=== PATIENT | male | born 1955 | race Caucasian/White ===

== ENCOUNTER 2024-06-27 10:42 | Outpatient (AMB) | payer BC, SELFPAY ==
--- NOTE | 2024-06-27 10:52 | MHC.PC.OV ---
Vital Signs 06/27/24 11:01 Height 5 ft 10.08 in Weight 285 lb 8 oz BMI 40.9 BP 138/74 Blood Pressure Location Rt brachial Position Sitting Pulse 73 Pulse Source Pulse Oximeter Pulse Oximetry (%) 94 Oxygen Delivery Method Room Air Intake Visit Reasons: est care/pace maker Intake Note: New patient visit [employer] Required: No Allergies No Known Allergies Allergy (Verified 06/27/24 10:55) Medication List - Last Reconciled 06/27/24 by Casandra Love PA-C amoxicillin PO tadalafil mg PO tadalafil 5 mg PO DAILY Tobacco use date assessed: 06/27/24 Fall risk assessment: No Falls in past year Last assessed Fall Risk: 06/27/24 Dental Screening Dental Screen Date: 06/27/24 Did you have a dental visit in the last 12 months?: Yes Did you have a dental problem in the last 6 months where you did not have access to dental care?: No Was dental information given to patient?: Patient has dentist HPI est care/pace maker HPI Details Pt is a 69 y/omale who presents today to establish care. He is transferring from [place]. He has a hx of hip replacements, erectile dysfunction, and a pacemaker. General: work has had some increase stressors and he does emotional overeat. He states that he knows how to lose weight and is trying a nutritional plan. He states at one time he lost 120 lbs. He is doing a low carb diet and following the whole 30. He is trying to also bike more. Musculoskeletal: followed with [facility] for bilateral hip replacements (one in 2012 and one in 2017). CV: follows with Dr. Astorga for his pacemaker. He had this put in in 2014. He states he needs a new referral to back to him because it is due to be replaced. He states that he had this because he had some weird rhythm of his heart while he was doing a stress test. He tells me he can not remember what it was or what this is called. He says that this is about 10 years ago and he felt fine while he was on the treadmill but remembers them stopping the test because of his rhythm and then he met to go get a pacemaker. He states that they are upset with him a little bit of the Cardiology Department because he has missed a couple follow up. He does not have his records here yet today. He is going to sign a release. He states it was hard to contact [facility] for records. He has never had hypertension but has had elevated blood pressure readings on and off which have been consistent with his diet. States he has never had issues with his cholesterol. No chest pain or shortness on breath. Uro: has seen urology for the ED. He saw an eye doc this year and states everything looked normal . Colonoscopy: overdue- states that he had a normal colonoscopy before and would be open to a cologuard. does not want to do another colonoscopy if possible. no fam hx or personal hx. 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 [facility] Medical History (Updated 06/27/24 @ 11:59 by Casandra Love PA-C) Pacemaker Surgical History (Updated 06/27/24 @ 10:59 by Sofía Ahn CMA) H/O bilateral hip replacements Family History (Updated 06/27/24 @ 11:01 by Sofía Ahn CMA) Father Pancreatic cancer Mother Type 2 diabetes mellitus Social History (Updated 06/27/24 @ 11:01 by Sofía Ahn CMA) Housing: House Alcohol intake: former Comment: quit 14 years ago Patient Tobacco Use Status: Former Tobacco user (quit 30 years ago) Cigarette Packs Per Day: 1 Years Smoked: 15 e-Cigarette/Vaping Use: Never Used service: No Current occupational status: employed Current occupation: Sales Current occupational exposures/hazards: No Cognitive needs: No Hearing needs: No Vision needs: No Questionnaire PHQ-9 Over the last 2 weeks, how often have you been bothered by any of the following problems? 1. Little interest or pleasure in doing things: not at all 2. Feeling down, depressed, or hopeless: not at all 3. Trouble falling or staying asleep, or sleeping too much: not at all 4. Feeling tired or having little energy: not at all 5. Poor appetite or overeating: not at all 6. Feeling bad about yourself - or that you are a failure or have let yourself or your family down: not at all 7. Trouble concentrating on things, such as reading the newspaper or watching television: not at all 8. Moving or speaking so slowly that other people could have noticed. Or the opposite - being so fidgety or restless that you have been moving around a lot more than usual: not at all 9. Thoughts that you would be better off or of hurting yourself in some way: not at all Total score: 0 Depression Screening Interpretation: Negative Depression Screening Done: Yes 24151 - PHQ-9 Billing: Yes Source: Developed by Drs. Shade Angel, Rosanna Pandya, Chaka Maciel and colleagues, with an educational cl from [employer]. Thrive Questionnaire I am a: Patient What is your living situation today?: I have a steady place to live Within the past 12 months, did the food you bought not last and you didn't have the money to get more?: Never true Within the past 12 months, did you worry whether your food would run out before you got money to buy more?: Never true Do you have trouble paying for medicines?: No Do you have trouble getting transportation to medical appointments?: No Do you have trouble paying your heating and electricity bill?: No Do you have trouble taking care of your child, family member or friend?: No Do you have trouble with day-to-day activities such as bathing, preparing meals, shopping, managing finances, etc.?: No Are you currently unemployed and looking for a job?: No Are you interested in more education?: Yes Please select the resources that you would like help with: None Currently or been in a relationship where the following occur: No concerns reported THRIVE Score: 0 AUDIT C Alcohol Use Questionnaire (AUDIT-C) 1. How often do you have a drink containing alcohol?: Never Total Score: 0 Score Reviewed/Action Taken: Yes MARTHA-7 AMB Questionnaire MARTHA-7 Feeling nervous, anxious, or on edge: 0 = Not at all Not being able to stop or control worryin = Not at all Worrying too much about different things: 0 = Not at all Trouble relaxin = Not at all Being so restless that it is hard to sit still: 0 = Not at all Becoming easily annoyed or irritable: 0 = Not at all Feeling afraid as if something awful might happen: 0 = Not at all Total MARTHA-7 score (0-4 normal; 5-9 mild; 10-14 moderate; 15-21 severe): 0 Source: Developed by Drs. Shade Angel, Rosanna Pandya, Chaka Maciel and colleagues, with an educational cl from [employer]. MARTHA-7 Assessment Billing MARTHA-7 Assessment Tool: MARTHA-7 Assessment 47471 Physical exam (Primary Care) Vital Signs: Last Vital Signs Pulse 73 06/27/24 11:01 BP 138/74 06/27/24 11:01 Pulse Ox 94 06/27/24 11:01 Oxygen Delivery Method Room Air 06/27/24 11:01 BMI result Body Mass Index 40.9 Tobacco/Smoking Status: Tobacco use Status Tobacco use date assessed 06/27/24 06/27/24 11:05 Patient Tobacco Use Status Former Tobacco user (quit 30 06/27/24 11:05 years ago) e-Cigarette/Vaping Use Never Used 06/27/24 11:05 PHQ-9: PHQ-9 Score PHQ-9: Total score 0 06/27/24 11:05 Depression Screening Interpretation: Negative Currently or been in a relationship where the following occur: No concerns reported Const Orientation/consciousness: patient oriented x3 HENMT Ears: hearing grossly normal bilaterally Neck Thyroid: Thyroid normal Lymphatic: no lymphadenopathy noted Resp Auscultation: clear to auscultation bilaterally Cardio Rate: regular rate Rhythm: regular rhythm Heart sounds: S1 normal heart sound present and S2 normal heart sound present GI Inspection: Yes normal to inspection Palpation (GI): Soft to palpation and Other GI palpation findings present (nontender, no cva tenderness) Auscultation: normoactive bowel sounds Rectal Exam - Male: Yes deferred Skin General skin exam: no rashes or lesions noted Neuro General: patient oriented x3, gait normal and no focal motor deficits Coding Level of Care Code New Pt Level 4 (80800) Complex EM visit Add On G2211 Diagnoses Pacemaker Z95.0 Hx of cardiac arrhythmia Z86.79 Former smoker Z87.891 Prehypertension R03.0 Additional Codes PHQ-9 - 50642 - PHQ-9 Billing: Yes ([id number]) MARTHA-7 Assessment Billing - MARTHA-7 Assessment Tool: MARTHA-7 Assessment 84951 ([id number]) Assessment & Plan Assessment & Plan (1) Pacemaker: Code(s): Z95.0 - Presence of cardiac pacemaker Category: Medical Plan: Referral to Dr. Astorga. (2) Hx of cardiac arrhythmia: Code(s): Z86.79 - Personal history of other diseases of the circulatory system Category: Medical Plan: Advised patient to get records. (3) Former smoker: Code(s): Z87.891 - Personal history of nicotine dependence Category: Social Hx Plan: AAA screen ordered. He did smoke but quit more than 30 years ago. He smoked on and off as a teenager for about 20 years. (4) Prehypertension: Code(s): R03.0 - Elevated blood-pressure reading, without diagnosis of hypertension Category: Medical Plan: We did discuss that his blood pressure is borderline. We will monitor this. He is currently working on diet and weight loss. He is trying the whole 30. He does not believe he needs any help in terms of weight loss medication. We will do a follow up. Plan Labs ordered today including CBC, CMP, lipid, TSH, PSA. Discussed the pros and cons ordering a PSA. Ultrasound of the abdominal aorta ordered. Cologuard ordered. Referral to Cardiology. Orders: Orders Complete Blood Count Auto Diff Today Z13.220 - Encounter for screening for lipoid disorders, Z86.79 - Personal history of other diseases of the circulatory system, Z95.0 - Presence of cardiac pacemaker US abdominal aortic aneurysm Today R03.0 - Elevated blood-pressure reading, without diagnosis of hypertension, Z87.891 - Personal history of nicotine dependence Comprehensive Tillar. Panel Fast Today Z13.220 - Encounter for screening for lipoid disorders, Z86.79 - Personal history of other diseases of the circulatory system, Z95.0 - Presence of cardiac pacemaker Lipid Panel Today Z13.220 - Encounter for screening for lipoid disorders, Z86.79 - Personal history of other diseases of the circulatory system, Z95.0 - Presence of cardiac pacemaker TSH reflex Free T4 Today Z13.220 - Encounter for screening for lipoid disorders, Z86.79 - Personal history of other diseases of the circulatory system, Z95.0 - Presence of cardiac pacemaker Prostate Specific Antigen Scr Today Z01.89 - Encounter for other specified special examinations, Z13.220 - Encounter for screening for lipoid disorders, Z86.79 - Personal history of other diseases of the circulatory system, Z95.0 - Presence of cardiac pacemaker Referrals Cologuard Test Z12.11 - Encounter for screening for malignant neoplasm of colon Cardiology Referral Z86.79 - Personal history of other diseases of the circulatory system, Z95.0 - Presence of cardiac pacemaker
[2024-06-27 11:01] VITALS: BP 138/74; PULSE 73; O2SAT 94; BMI 40.9
== END 2024-06-27 12:14 | disposition home or self-care (01) ==
PROVIDERS: PCP Physician Assistant; Visit Provider Physician Assistant
DX: R03.0 Elevated blood-pressure reading, without diagnosis of hypertension (principal); Z95.0 Presence of cardiac pacemaker; Z86.79 Personal history of other diseases of the circulatory system; Z87.891 Personal history of nicotine dependence

== ENCOUNTER → 2024-06-27 10:42 | Outpatient (BNVA) | payer BC, SELFPAY | PROVIDERS: PCP Physician Assistant; Visit Provider Physician Assistant | DX: Z86.79 Personal history of other diseases of the circulatory system (principal); Z95.0 Presence of cardiac pacemaker; R03.0 Elevated blood-pressure reading, without diagnosis of hypertension; Z87.891 Personal history of nicotine dependence | CPT/HCPCS: 96127 ==

== ENCOUNTER 2024-07-26 08:37 | Outpatient (REF) | payer BC, SELFPAY ==
--- NOTE | ~2024-07-26 | US_ITS ---
EXAMINATION: US ABDOMEN ANEURYSM SCREENING HISTORY: Z87.891 - Personal history of nicotine dependence TECHNIQUE: Ultrasound of the abdominal aorta was performed with color flow and spectral imaging. COMPARISON: There are no prior studies for comparison. FINDINGS: Real-time grayscale ultrasound imaging was performed and reviewed. Mild plaque is seen. Proximal abdominal aorta measures 2.1 x 2.4 cm Mid abdominal aorta measures 2.0 x 2.1 cm Distal abdominal aorta measures 2.1 x 2.0cm. Left proximal iliac artery measures 1.5 x 1.3 cm. Right proximal iliac artery measures 1.1 x 1.0cm. US/US abdominal aortic aneurysm IMPRESSION: No evidence of an abdominal aortic aneurysm. Electronically signed by: Shade Khan MD 07/26/2024 09:19 AM [facility] [place]
--- OUTSIDE RECORDS SUMMARY | 2024-07-26 08:55 | XMS_ITS | Encounter Summary ---
Author Organization [facility] Address [address] [place] [address] Care Team Providers Care Area Development Manager Name Role Phone Patricia Pritchett MD Primary Care Provider [phone] Encounter Details Date Type Department Care Team (Late st Contact Info) Description 07/02/2024 5:25 PM EST Ancillary Procedure [facility] [address] [facility] [address] [place] [address] Social History Tobacco Use Types Packs/Day Years Used Date Smoking Tobacco: Former Smokeless Tobacco: Never Alcohol Use Standard Drinks/Week Comments Yes 0 (1 standard drink = 0.6 oz pur e alcohol) Sex and Gender Information Value Date Recorded Sex Assigned at Not on file Legal Sex Male 12:31 AM EST Gender Identity Not on file Sexual Orientation Not on file documented as of this encounter Plan of Treatment Upcoming Encounters Date Type Department Care Team (Late st Contact Info) Description 11/26/2024 9:30 AM EDT Ancillary Procedure [facility] [address] [facility] [address] [place] [address] documented as of this encounter Procedures Procedure Name Priority Date/Time Associated Diagnosis Comments CARDIAC DEVICE CHECK- REMOTE- MURJ Routine 07/02/2024 5:24 PM EST documented in this encounter Results * Cardiac device check - Remote- MURJ (07/02/2024 5:24 PM EST) Date Time Interrogation Session [id number] CV DEVICE CHECK Type Interrogation Session Remote Scheduled CV DEVICE CHECK Implantable Pulse Generator Encoding Machine Operator [facility] CV DEVICE CHECK Implantable Pulse Generator Type IPG CV DEVICE CHECK Implantable Pulse Generator Model 2240 Assurity(TM) DR CV DEVICE CHECK Implantable Pulse Generator Serial Number [id number] CV DEVICE CHECK Implantable Pulse Generator Implant Date [id number] CV DEVICE CHECK Battery Remaining Percentage 10.00 CV DEVICE CHECK Battery Remaining Longevity 12.0 CV DEVICE CHECK Battery Voltage 2.830 CV D EVICE CHECK Battery [employer] TEACHER Trigger 2.600 CV DEVICE CHECK Battery Status Middle of Service CV DEVICE CHECK Ventura Statistic RA Percent Paced 10.00 CV DEVICE CHECK Ventura Statistic RV Percent Paced 99.00 CV DEVICE CHECK Atrial Tachy Statistic AT/AF Dilliner Percent 0.00 CV DEVICE CHECK Lead Channel Sensing Intrinsic Amplitude 5.000 CV DEVICE CHECK Lead Channel Setting Sensing Sensitivity 0.75 CV DEVICE CHECK Lead Channel Impedance Value 440 CV DEVICE CHECK Lead Channel Pacing Threshold Amplitude 0.750 CV DEVICE CHECK Lead Channel Pacing Threshold Pulse Width 0.5 CV DEVICE CHECK Lead Channel RA Pacing Threshold Date 2024-06-24 CV DEVICE CHECK Lead Channel Setting Pacing Amplitude 1.750 CV DEVICE CHECK Lead Channel Setting Pacing Pulse Width 0.5 CV DEVICE CHECK Lead Channel Sensing Intrinsic Amplitude 12.000 CV DEVICE CHECK Lead Channel Setting Sensing Sensitivity 2.00 CV DEVICE CHECK Lead Channel Impedance Value 490 CV DEVICE CHECK Lead Channel Pacing Threshold Amplitude 0.750 CV DEVICE CHECK Lead Channel Pacing Threshold Pulse Width 0.5 CV DEVICE CHECK Lead Channel RV Pacing Threshold Date 2024-06-24 CV DEVICE CHECK Lead Channel Setting Pacing Amplitude 1.000 CV DEVICE CHECK Lead Channel Setting Pacing Pulse Width 0.5 CV DEVICE CHECK Ventura Setting Mode (NBG Code) DDDR CV DEVICE CHECK Ventura Setting Lower Rate Limit 60 CV DEVICE CHECK Ventura Setting AT Mode Switch Rate 200 CV DEVICE CHECK Ventura Setting Maximum Tracking Rate 140 CV DEVICE CHECK Ventura Setting Maximum Sensor Rate 130 CV DEVICE CHECK Ventura Setting PAV Delay 250 CV DEVICE CHECK Ventura Setting ROSE MARIE Delay 200 CV DEVICE CHECK Date of Service 2024-07-02 CV DEVICE CHECK Anatomical Region Laterality Modality Device Interroga tion 06/24/2024 4:45 AM EST Impressions 07/02/2024 8:06 AM EST Normal Remote: No Events * Normal Device Function * Alerts or events: None * Battery: Battery is at 10%, 1.00 yrs * Sensing, impedance and thresholds reviewed * Programmed parameters reviewed * Presenting rhythm reviewed * Heart Rate Histograms reviewed * No significant changes noted Narrative Procedure Note Napoleon Bailey MD - 07/02/2024 IMPRESSION: Normal Remote: No Events * Normal Device Function * Alerts or events: None * Battery: Battery is at 10%, 1.00 yrs * Sensing, impedance and thresholds reviewed * Programmed parameters reviewed * Presenting rhythm reviewed * Heart Rate Histograms reviewed * No significant changes noted us Napoleon Bailey MD CV IMPLANTABLE CARDIAC DEV ICE PROCEDURES Final Result documented in this encounter Visit Diagnoses Not on filedocumented in this encounter Care Teams Area Development Manager Relationship Specialty Start Date End Date Patricia Pritchett MD [address] [place] [id number] PCP - General 11/18/22 documented as of this encounter
--- OUTSIDE RECORDS SUMMARY | 2024-07-26 08:55 | XMS_ITS | Encounter Summary ---
Author Organization [facility] Address [address] [place] [address] Care Team Providers Care Child Custody Evaluator Name Role Phone Patricia Pritchett MD Primary Care Provider [phone] Reason for Visit * Reason Onset Date Comments Referral 07/17/2024 Received routine paper referral. Encounter Details Date Type Department Care Team (Late st Contact Info) Description 07/17/2024 Telephone [facility] Cardiology [address] [place] [phone] Casandra Love PA [address] [place] [address] Referral (Received routine paper referral.) Social History Tobacco Use Types Packs/Day Years [...] on file documented as of this encounter Progress Notes * Keesha Jimenez - 07/17/2024 10:12 AM EST Left Message - Left message for patient to contact office to set up appointment. documented in this encounter Plan of Treatment Upcoming Encounters Date Type Department Care Team (Late st Contact Info) Description 11/26/2024 9:30 AM EDT Ancillary Procedure [facility] [address] [facility] [address] [place] [phone] documented as of this encounter Visit Diagnoses Not on filedocumented in this encounter Care Teams Child Custody Evaluator Relationship Specialty Start Date End Date Patricia Pritchett MD [address] [place] [address] PCP - General 11/18/22 documented as of this encounter
--- OUTSIDE RECORDS SUMMARY | 2024-07-26 08:55 | XMS_ITS | Clinical Summary ---
Author Organization [facility] ity Address [address] [place] [address] Care Team Providers Care Inspector Packer [employer] Name Role Phone Patricia Pritchett MD Primary Care Provider [phone] [phone] Allergies No known active allergies Medications ascorbic acid (VITAMIN C) 1,000 mg tablet Take 1,000 mg by mouth daily. Active cholecalciferol (VITAMIN D-3) 50 mcg (2,000 unit) capsule Take 1 Cap by mouth daily. Active UNABLE TO FIND CPAP Historical (HISTORICAL CPAP) Sig - Route: Inhale ??into the lungs at bedtime. Auto set 6-18 via full face mask/ BHI&R - Inhalation Class: Historic Active magnesium citrate 100 mg capsule Take by mouth. Activ e multivitamin with minerals (MULTIPLE VITAMIN-MINERAL S ORAL) Take 1 tablet by mouth 1 (one) time each day. Active OMEGA-3 FATTY ACIDS-FISH OIL ORAL Take by mouth. Activ e tamarind seed/turmeric extract (MOVE FREE ULTRA TURMERIC-JARRET ORAL) Take by mouth. Activ e zinc glycinate 20 mg capsule Take by mouth. A ctive Active Problems Problem Noted Date Diagnosed Date Sleep apnea 11/13/2014 Pacemaker 08/07/2014 Complete heart block 08/05/2014 Overview (05/31/2024): Pacemaker placed 08/05/2014 Osteoarthrosis, localized, primary, involving lo wer leg 01/18/2012 Overview (05/31/2024): IMO Update Fall 2015 Obesity, unspecified 06/11/2008 Encounters Date Type Department Care Team Description 07/17/2024 Telephone [facility] [address] [place] [address] Casandra Love PA Referral (Received routine paper referral.) 07/02/2024 5:25 PM EST Ancillary Procedure [facility] - [address] [place] [phone] 06/13/2024 Telephone Adult Medicine - [place] [address] [place] [address] Patricia Pritchett MD Referral (Referral for [facility]) 06/11/2024 Telephone [facility] - [address] [place] [phone] Jony Astorga MD Chest Pain 06/10/2024 Telephone [facility] - [address] [place] [phone] Jony Astorga MD Device Check from Last 3 Months Immunizations Name Administration Dates Next Due Tdap Tetanus diptheria acell ular pertussis (Boostrix; Adacel) 7yo and older 2011 Surgical History Surgery Date Site/Laterality Comments COLONOSCOPY 03/14/07 [facility] PROCEDURE: HISTORICAL COLONOSCOPY; COMMENT: normal; repeat in ten years PACEMAKER IMPLANT 08/04/14 PROCEDURE: HISTORICAL PACEMAKER; COMMENT: Beryl Bailey HIP ARTHROPLASTY 11/14/2016 Right PROCEDURE: HISTORICAL HIP REPLACEMENT; COMMENT: Jesus Khan MD Medical History Medical History Date Comments Osteoarthrosis, unspecified whether generalized or localized, pelvic region and thigh 01/18/2012 DX:Osteoarthrosis, unspecifi ed whether generalized or localized, pelvic region and thigh Osteoarthrosis, unspecified whether generalized or localized, lower leg 01/18/2012 DX:Osteoarthrosis, unspecified whether generalized or localized, lower leg Obstructive sleep apnea DX:Obstr uctive sleep apnea Pacemaker DX:Pacemaker Family History Relation Name Status Comments Brother Alive healthy Daughter Alive healthy Father Pancreatic CA Mother Alive diabetes, HTN Sister Alive healthy Son 1 Alive healthy Son 2 Alive healthy Social History Tobacco Use Types Packs/Day Years Used Date Smoking Tobacco: Former Smokeless Tobacco: Never Alcohol Use Standard Drinks/Week Comments Yes 0 (1 standard drink = 0.6 oz pur e alcohol) Sex and Gender Information Value Date Recorded Sex Assigned at Not on file Legal Sex Male 12:31 AM EST Gender Identity Not on file Sexual Orientation Not on file Obstetrics History Last Filed Vital Signs Vital Sign Reading Time Taken Comments Blood Pressure 132/78 12/26/2022 11:22 AM EDT Pulse 73 12/26/2022 11:22 AM EDT Temperature - - Respiratory Rate - - Oxygen Saturation - - Inhaled Oxygen Concentration - - Weight 123 kg (272 lb) 12/26/2022 11:22 AM EDT Height 182.9 cm (6') 12/26/2022 11:22 AM EDT Body Mass Index 36.89 12/26/2022 11:22 AM EDT Plan of Treatment Upcoming Encounters Date Type Department Care Team ([facility] st Contact Info) Description 11/26/2024 9:30 AM EDT Ancillary Procedure [facility] - [facility] [address] [facility] [address] [place] [address] Health Maintenance Due Date Last Done Comments Pneumococcal Vaccine: 50+ Years (1 of 1 - PCV) 2004 Zoster Vaccines (1 of 2) 2004 DTaP,Tdap,and Td Vaccines (2 - Td or Tdap) 2021 2011 Abdominal Aortic Aneurysm (AAA) Screen 05/15/2022 Cholesterol Screening (Lipid Panel) 05/15/2022 07/21/2014 Colorectal Cancer Screening: Colonoscopy 05/15/2022 03/15/2007 Depression Screening 05/15/2022 Falls Risk Assessment 05/15/2022 Hepatitis C Screening 05/15/2022 Social Influencers of Health Screening 05/15/2022 COVID-19 Vaccine (3 - 2023-2 5 season) 2024 10/14/2020, 09/22/2020 Influenza Vaccine (#1) 2024 RSV Immunization Patients 60 + Years Old (1 - 1-dose 75+ series) 2029 HIB Vaccines Aged Out No longer eligi ble based on patient's age to complete this topic HPV Vaccines Aged Out No longer eligi ble based on patient's age to complete this topic Hepatitis A Vaccines Aged Out No long er eligible based on patient's age to complete this topic Hepatitis B Vaccines Aged Out No long er eligible based on patient's age to complete this topic IPV Vaccines Aged Out No longer eligi ble based on patient's age to complete this topic MMR Vaccines Aged Out No longer eligi ble based on patient's age to complete this topic Meningococcal ACWY Vaccine Aged Out N o longer eligible based on patient's age to complete this topic Meningococcal B Vacine Aged Out No lo nger eligible based on patient's age to complete this topic RSV Immunization Patients Under 20 months Aged Out No longer eligible b ased on patient's age to complete this topic Varicella Vaccines Aged Out No longer eligible based on patient's age to complete this topic Medical Devices Implanted Type Area Ip Attorney Device Identifier Shelf Expiration Date Model / Serial / Lot [id number]-[id number] 2240 Assurity(Tm) [id number] Implanted: (Quantity not on file) Cardiac Pacemaker [facility] 2240 ASSURITY(T M) / [id number] / Procedures Procedure Name Priority Date/Time Associated Diagnosis Comments CARDIAC DEVICE CHECK- REMOTE- MURJ Routine 07/02/2024 5:24 PM EST LIPID PANEL Routine 07/21/2014 HM COLONOSCOPY Routine 03/15/2007 from Last 3 Months or Most Recently Relevant to Health Maintenance Results * Cardiac device check - Remote- MURJ (07/02/2024 5:24 PM EST) Date Time Interrogation Session [id number] CV DEVICE CHECK Type Interrogation Session Remote Scheduled CV DEVICE CHECK Implantable Pulse Generator Ip Attorney [facility] CV DEVICE CHECK Implantable Pulse Generator Type IPG CV DEVICE CHECK Implantable Pulse Generator Model 2240 Assurity(TM) CV DEVICE CHECK Implantable Pulse Generator Serial Number [id number] CV DEVICE CHECK Implantable Pulse Generator Implant Date [id number] CV DEVICE CHECK Battery Remaining Percentage 10.00 CV DEVICE CHECK Battery Remaining Longevity 12.0 CV DEVICE CHECK Battery Voltage 2.830 CV D EVICE CHECK Battery BILLING ADJUDICATOR Trigger 2.600 CV DEVICE CHECK Battery Status Middle of Service CV DEVICE CHECK Venutra Statistic RA Percent Paced 10.00 CV DEVICE CHECK [place] Statistic RV Percent Paced 99.00 CV DEVICE CHECK Atrial Tachy Statistic AT/AF [place] Percent 0.00 CV DEVICE CHECK Lead Channel [...] Histograms reviewed * No significant changes noted Napoleon Bailey MD CV IMPLANTABLE CARDIAC DEV ICE PROCEDURES Final Result * (ABNORMAL) Lipid panel (07/21/2014) LDL/HDL Ratio 4 0 - 4 Triglycerides 101 0 - 150 mg/dL Cholesterol 172 0 - 200 mg/dL HDL 48 >=40 mg/dL LDL Cholesterol 104(A) 0 - 100 mg/dL Blood Venous blood specimen / Unknown Historical Provider LAB BLOOD ORDERABLES Aziza l Result * Colonoscopy (03/15/2007) Colonoscopy no interpretation , abstracted Anatomical Region Laterality Modality Other Historical Provider HEALTH MAINTENANCE Final Result from Last 3 Months or Most Recently Relevant to Health Maintenance Insurance MEDICARE Care Teams Inspector P[employer] Relationship Specialty Start Date End Date Patricia Pritchett MD [address] [place] [id number] PCP - General 11/18/22
--- OUTSIDE RECORDS SUMMARY | 2024-07-26 08:55 | XMS_ITS | Encounter Summary ---
Author Organization [facility] Address [address] [place] [address] Care Team Providers Care Seo Intern Name Role Phone Patricia Pritchett MD Primary Care Provider [phone] Reason for Visit * Reason Onset Date Comments Chest Pain 06/11/2024 Encounter Details Date Type Department Care Team (Late st Contact Info) Description 06/11/2024 Telephone [facility] - [address] [place] [phone] Jossy Astorga MD [address] [place] [address] Chest Pain Social History Tobacco Use Types Packs/Day Years [...] as of this encounter Progress Notes * Virginia Chun RN - 06/11/2024 2:50 PM EST Informed pt DALLIN recommendations Pt aware to seek emergent care for s/s that worsen or are not improved. Pt is going to call PCP and have him send referral for Dr Astorga AK : pt needs to reestablish care BONIFACIO 2017 JOSSY pt DX: Complete heart block, Pacemaker, sleep Apnea,Aortic valve stenosis PCP should be sending over referral pt is going to call him * Ana King NP - 06/11/2024 2:37 PM EST Yes, we have seen him here for device check as recently as 01/2024. Unfortunately, it appears that he has not been seen by his primary tagman since 2018; it looks as though he has no showed or canceled several appointments since then. In this instance, I think he will need to be seen by Dr. Astorga to reestablish care. In the interim, I would encourage him to follow-up with his PCP regardinghis recent symptoms, seeking urgent medical attention should they worsen in the interim. * Virginia Chun RN - 06/11/2024 1:34 PM EST Pt states he has felt out of breath every once in a while for last month. SOB with exertion last 1.5 months. Denies CP, PND, Orthopnea Had resp virus Thanksgiving into May took Mucinex. Pt has not been following low salt diet for the past month. Went back on low salt diet this week. Edema lower legs and ankles is getter better since getting back on low salt diet. Encouraged pt to strictly follow low salt diet, stated he will Does not check daily weight I explained the reasoning for weight log and he will start one. Pt doesn't take any prescription meds, just vitamins. Encounter from 06/10/24 from device clinic * Nuha Campbell - 06/11/2024 1:23 PM EST Patient called he has been having weird feelings in his chest that he has not experienced before. He would like a call back for guidance at [phone]. documented in this encounter Plan of Treatment Upcoming Encounters Date Type Department Care Team (Late st Contact Info) Description 11/26/2024 9:30 AM EDT Ancillary Procedure [facility] - [address] [place] [phone] documented as of this encounter Visit Diagnoses Not on filedocumented in this encounter Care Teams Seo Intern Relationship Specialty Start Date End Date Patricia Pritchett MD [address] [place] [address] PCP - General 11/18/22 documented as of this encounter
--- OUTSIDE RECORDS SUMMARY | 2024-07-26 08:55 | XMS_ITS | Encounter Summary ---
Author Organization [facility] Address [address] [place] [address] Care Team Providers Care Records Supervisor Name Role Phone Patricia Pritchett MD Primary Care Provider [phone] Reason for Visit * Reason Onset Date Comments Referral 06/13/2024 Referral for Uro logy Group [facility] Encounter Details Date Type Department Care Team ([facility] st Contact Info) Description 06/13/2024 Telephone Adult Medicine [facility] [address] [place] [phone] Patricia Pritchett MD [address] [place] [address] Referral (Referral for Urology Group [facility]) Social History Tobacco Use Types Packs/Day Years [...] as of this encounter Progress Notes * Ana Larry - 06/13/2024 12:44 PM EST Please create an order for the referral Caller: n/a Office: [facility]rology Group [facility] Insurance: BCBS ID: [id number] Provider: Dr Buckner DOS: 04/24/24 Visits: 6 Dx code: N52.8, N40.1 IMPORTANT Pls copy and paste this into the order. Otherwise, it will not be processed as an ins referral documented in this encounter Plan of Treatment Upcoming Encounters Date Type Department Care Team (Late st Contact Info) Description 11/26/2024 9:30 AM EDT Ancillary Procedure [facility] - [address] [facility] [address] [place] [address] documented as of this encounter Visit Diagnoses Not on filedocumented in this encounter Care Teams Records Supervisor Relationship Specialty Start Date End Date Patricia Pritchett MD [address] [place] [address] PCP - General 11/18/22 documented as of this encounter
== END 2024-07-26 08:38 | disposition home or self-care (01) ==
LOC: HO.HMGCX 08:37
PROVIDERS: PCP Physician Assistant; Visit Provider Physician Assistant
DX: R03.0 Elevated blood-pressure reading, without diagnosis of hypertension (principal); Z87.891 Personal history of nicotine dependence
CPT/HCPCS: 76706

== ENCOUNTER → 2024-07-26 08:41 | Outpatient (BNV) | payer BC, SELFPAY | PROVIDERS: PCP Physician Assistant; Visit Provider Radiology Diagnostic Radiology | DX: R03.0 Elevated blood-pressure reading, without diagnosis of hypertension (principal) | CPT/HCPCS: 76706 ==